=== PATIENT | female | born 1955 | race Caucasian/White ===

== ENCOUNTER 2020-12-28 17:47 | Emergency (ER) | payer MEDICARE, OTHER ==
[~2020-12-28 17:47] MED LIST: ABILIFY10 MG PO; ATIVAN1 MG PO; BENICAR HCT 401 EACH PO; EFFEXOR XR 75 M75 MG PO; EFFEXOR XR150 MG PO; GLUCOPHAGE1000 MG PO; LIPITOR TAB 1010 MG PO; MOTRIN IB200 MG PO; NORVASC 5 MG TAB5 MG PO; REMERON15 MG PO; SYNTHROID25 MCG PO; SYNTHROID50 MCG PO; VENLAFAXINE HCL75 MG PO; VITAMIN D250000 UNIT PO
== END 2020-12-28 21:35 | disposition home or self-care (01) ==
LOC: ER1 17:47
DX: S01.511A Laceration without foreign body of lip, initial encounter (principal); E11.9 Type 2 diabetes mellitus without complications; I10 Essential (primary) hypertension; Z23 Encounter for immunization; W01.0XXA Fall on same level from slipping, tripping and stumbling without subsequent striking against object, initial encounter; Y92.009 Unspecified place in unspecified non-institutional (private) residence as the place of occurrence of the external cause
CPT/HCPCS: 12011; 90471; 90715; 99283

== ENCOUNTER → 2021-03-10 | Outpatient (CLI) | payer MEDICARE, OTHER | LOC: MAMO 14:00 | DX: Z12.31 Encounter for screening mammogram for malignant neoplasm of breast (principal) | CPT/HCPCS: 77063; 77067 ==

== ENCOUNTER → 2021-09-26 | Outpatient (CLI) | payer MEDICARE, OTHER | LOC: EROP 16:12 | DX: U07.1 COVID-19 (principal); Z23 Encounter for immunization | CPT/HCPCS: 96365 ==

== ENCOUNTER → 2022-04-05 | Outpatient (CLI) | payer MEDICARE, OTHER | LOC: MAMO 03-03 09:30 | DX: Z12.31 Encounter for screening mammogram for malignant neoplasm of breast (principal) | CPT/HCPCS: 77063; 77067 ==